=== PATIENT | female | born 1975 | race Caucasian/White ===

== ENCOUNTER 2018-07-30 08:21 | Emergency (ER) | payer OTHER ==
[~2018-07-30] VITALS: Ht 157.5 cm; Wt 54.4 kg
[2018-07-30] MEDS ORDERED: Norco 5mg/325mg tab PO ONE (08:45)
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
--- NOTE | 2018-07-30 09:27 | Diagnostic Imaging Report ---
Indication: Headache. Head trauma Technique: Contiguous 5 mm thick transaxial imaging of the head obtained in a Siemens Sensation [address] scanner. Soft tissue and bone windows generated. Automatic Exposure Control was utilized. Total Dose length Product (DLP): [address] Dose Index Volume (CTDIvol): 0.15, 70.38 mGy Comparison: none Findings: The size and configuration of the cortical sulci, basal cisterns, and ventricles are within normal limits for age. There is no mass effect, midline shift, or edema identified. There is no evidence of acute hemorrhage or abnormal intra-axial or extra-axial fluid collections. The bones and soft tissues are unremarkable. Impression: No mass effect, edema or acute bleed. The CT scanner at [facility] is accredited by the [employer] and the scans are performed using dose optimization techniques as appropriate to a performed exam including Automatic Exposure control.
--- NOTE | 2018-07-30 09:34 | Diagnostic Imaging Report ---
Indication: Facial trauma and pain Technique: Continuous helical transaxial imaging of the maxillofacial structures obtained without intravenous contrast administration. Coronal 2-D reformats were also obtained. Study obtained in a Siemens sensation [address] Automatic Exposure Control was utilized. Total Dose length Product (DLP): Refer to CT head mGycm CT Dose Index Volume (CTDIvol): Refer to CT head mGy Comparison: None Findings: There is a mild fracture involving the right frontal process of the maxilla. Mild soft tissue swelling is present. The nasal bone appears intact. Paranasal sinuses are clear. Orbits are unremarkable. Mastoids are clear bilaterally. There are bilateral fixation screws within the lower teeth and mandible. IMPRESSION: Fracture of the right frontal process. This is probably acute but please correlate clinically. The CT scanner at [facility] is accredited by the [employer] and the scans are performed using dose optimization techniques as appropriate to a performed exam including Automatic Exposure control.
[2018-07-30] MEDS ORDERED: ACETAMINOPHEN-1 EAC1 ORAL (09:46)
[2018-07-30 10:01] VITALS: BP 114/80
[2018-07-30 10:07] VITALS: BP 114/80
== END 2018-07-30 10:07 | disposition home or self-care (01) ==
LOC: EDBD 08:21 → EMR 08:39
DX: S02.42XA Fracture of alveolus of maxilla, initial encounter for closed fracture (principal); S00.83XA Contusion of other part of head, initial encounter; V43.52XA Car driver injured in collision with other type car in traffic accident, initial encounter; Y92.488 Other paved roadways as the place of occurrence of the external cause; Z88.0 Allergy status to penicillin; Z88.2 Allergy status to sulfonamides; Z88.8 Allergy status to other drugs, medicaments and biological substances
CPT/HCPCS: 70450; 70486; 99284

== ENCOUNTER 2019-04-03 22:07 | Emergency (ER) | payer OTHER ==
[~2019-04-03] VITALS: Ht 157.5 cm; Wt 54.4 kg
[~2019-04-03 22:07] MED LIST: ACETAMINOPHEN-1 EAC1 ORAL
--- NOTE | 2019-04-03 22:23 | NUR ---
ED Nurse Note: Received report. Pt from home, ambulatory, AAOx4, c/o flu-like symptoms including coughing, runny and painful nose since last Saturday after travelling to [place]. Will assess and carry out ER MD's orders.
[2019-04-03 22:26] VITALS: BP 126/61
[2019-04-03] MEDS ORDERED: IBUPROFEN600 MG ORAL (22:30)
[2019-04-03] MEDS ORDERED: ZITHROMAX250 MG ORAL (22:30)
[2019-04-03] MEDS ORDERED: PSEUDOEPHEDRINE60 MG PO (22:30)
--- NOTE | 2019-04-03 22:31 | Emergency Room Report ---
History of Present Illness General Chief Complaint: Flu Like Symptoms Source: Patient Present Illness [facility] This is a 43-year-old female with no past medical history. She presents with complaint of sore throat, cough, congestion. Onset for last 3 days. She got sick on the way home from [place]. Pain with swallowing. Pain with coughing. Coughing is nonproductive in nature. Denies any other complaint. Allergies: Coded Allergies: PENICILLINS (Verified Allergy, Unknown, rash, 04/03/19) SULFA (SULFONAMIDE ANTIBIOTICS) (Verified Allergy, Unknown, 07/30/18) SULFAMETHOXAZOLE (Verified Allergy, Unknown, 07/30/18) TRIMETHOPRIM (Verified Allergy, Unknown, 07/30/18) Patient History Past Medical History: see triage record, old chart reviewed Past Surgical History: none Pertinent Family History: none Social History: Denies: smoking Last Menstrual Period: 02-22-2019 Now: No Immunizations: other Reviewed Nursing Documentation: PMH: Agreed; PSxH: Agreed Nursing Documentation-PMH Past Medical History: No Stated History Review of Systems Eye: Reports: nose congestion; Denies: eye pain, blurred vision ENT: Reports: throat pain; Denies: ear pain, nose congestion, throat swelling Respiratory: Reports: cough; Denies: shortness of breath Cardiovascular: Denies: chest pain, palpitations Gastrointestinal: Denies: abdominal pain, diarrhea, nausea, vomiting Musculoskeletal: Denies: back pain, joint pain Skin: Denies: rash Neurological: Denies: headache, numbness Endocrine: Denies: increased thirst, increased urine Hematologic/Lymphatic: Denies: easy bruising All Other Systems: negative except mentioned in HPI Physical Exam Vital Signs Date Time Temp Pulse Resp B/P (MAP) Pulse Ox O2 Delivery O2 Flow Rate FiO2 04/03/19 22:17 99.1 94 16 126/61 (82) 97 Room Air Vitals unremarkable Sp02 EP Interpretation: reviewed, normal General Appearance: well appearing, no apparent distress, alert Head: normocephalic, atraumatic Eyes: bilateral eye PERRL, bilateral eye EOMI ENT: hearing grossly normal, pharyngeal erythema, tonsillar exudate Neck: full range of motion, supple, no meningismus Respiratory: chest non-tender, lungs clear, normal breath sounds Cardiovascular #1: regular rate, rhythm, no murmur Gastrointestinal: normal bowel sounds, non tender, no mass, no organomegaly, no bruit, non-distended Musculoskeletal: back normal, gait/station normal, normal range of motion Psychiatric: mood/affect normal Skin: warm/dry Medical Decision Making Diagnostic Impression: Primary Impression: URI (upper respiratory infection) Qualified Codes: J06.9 - Acute upper respiratory infection, unspecified ER Course With upper restaurant infection. Most likely viral in nature. She does have exudates we will put her on antibiotics. No evidence of peritonsillar abscess, retropharyngeal abscess or Oswald angina. Will discharge home. Last Vital Signs Date Time Temp Pulse Resp B/P (MAP) Pulse Ox O2 Delivery O2 Flow Rate FiO2 04/03/19 22:26 94 16 Room Air 04/03/19 22:17 99.1 126/61 (82) 97 Status: improved Disposition: HOME, SELF-CARE Condition: Stable Scripts Azithromycin* (ZITHROMAX*) 250 Mg Tablet 250 MG ORAL DAILY, #6 TAB 0 Refills Take two tables once daily for 1 day, then one tablet once daily for 4 days. Prov: Danny Gill MD 04/03/19 Pseudoephedrine Hcl* (SUDAFED*) 60 Mg Tablet 60 MG PO Q6H, #20 TAB Prov: Danny Gill MD 04/03/19 Ibuprofen* (MOTRIN*) 600 Mg Tablet 600 MG ORAL THREE TIMES A DAY, #30 TAB 0 Refills Prov: Danny Gill MD 04/03/19 Additional Instructions: Increase fluids. Salt water gargle. Follow up with your Dr. in 7 days. Return if worse. Danny Gill MD Apr 03, 2019 22:31
--- NOTE | 2019-04-03 22:37 | NUR ---
ED Nurse Note: Pt cleared by health care Provider for discharge. DC instructions/prescription was given and explained to pt and verbalized understanding of teachings. All medical deviecs such as ID band removed. Pt is AAO x4, ambulatory and left with all personal belongings.
== END 2019-04-03 23:00 | disposition home or self-care (01) ==
LOC: EMR 23:00
DX: J06.9 Acute upper respiratory infection, unspecified (principal); Z88.0 Allergy status to penicillin; Z88.2 Allergy status to sulfonamides
CPT/HCPCS: 99283